=== PATIENT | male | born 1960 | race Caucasian/White ===

== ENCOUNTER 2019-10-17 17:17 | Inpatient (IN) | payer OTHER ==
[2019-10-17] VITALS (11 sets, daily range): BP systolic 117–141; BP diastolic 66–89
[~2019-10-17] VITALS: Ht 172.7 cm; Wt 118.4 kg
[2019-10-17 17:45] LABS: ABSOLUTE BASOPHILS 0.1 thou/uL (0.0-0.2); ABSOLUTE EOSINOPHILS 0.1 thou/uL (0.0-0.7); ABSOLUTE LYMPHOCYTES 1.7 thou/uL (0.8-5.3); ABSOLUTE MONOCYTES 1.3 thou/uL (0.0-1.2); ABSOLUTE NEUTROPHILS 12.1 thou/uL (1.6-8.1); BASOPHILS 0.9 %; EOSINOPHILS 0.7 %; HEMOGLOBIN 18.2 gm/dL (14.0-18.0); LYMPHOCYTES 11.4 %; MCH 31.2 pg (26.0-34.0); MCHC 34.3 g/dL (28.0-37.0); MCV 90.8 fL (80.0-100.0); MONOCYTES 8.6 %; MPV 8.3 fl. (7.2-11.1); NUCLEATED RBCS 0 /100WBC; PLATELET COUNT* 226 thou/uL (150-400); POLYS 78.4 %; RBC 5.84 mil/uL (4.50-6.00); RDW-CV 15.2 % (10.5-14.5); WBC 15.4 thou/uL (4.0-11.0)
[2019-10-17 17:50] LABS: APTT 26.7 Seconds (25.0-31.3); PROTIME 10.3 Seconds (9.20-11.50)
[2019-10-17 17:57] LABS: CALCIUM 9.4 mg/dL (8.5-10.1); CREATININE 1.1 mg/dL (0.6-1.3); POTASSIUM 4.7 mmol/L (3.5-5.1)
[2019-10-17 18:08] LABS: ALBUMIN 4.3 g/dL (3.4-5.0); MAGNESIUM 2.5 mg/dL (1.8-2.4); TOTAL BILIRUBIN 0.7 mg/dL (<0.1-1.0); TOTAL PROTEIN 7.2 g/dL (6.4-8.2)
[2019-10-18] VITALS (24 sets, daily range): BP systolic 110–148; BP diastolic 60–104
[2019-10-18] MEDS ORDERED: NORVASC 2.5 MG2.5 M1 PO (00:24)
[2019-10-18 01:50] LABS: HEMATOCRIT 49.1 % (42.0-52.0); HEMOGLOBIN 16.6 gm/dL (14.0-18.0); MCHC 33.9 g/dL (28.0-37.0); MCV 91.5 fL (80.0-100.0); RBC 5.36 mil/uL (4.50-6.00); RDW-CV 14.7 % (10.5-14.5); WBC 13.8 thou/uL (4.0-11.0)
[2019-10-18 02:00] LABS: ALBUMIN 3.5 g/dL (3.4-5.0); ALKALINE PHOSPHATASE 76 U/L (46-116); ANION GAP 5 mmol/L (7-16); BUN 19 mg/dL (7-18); CALCIUM 8.5 mg/dL (8.5-10.1); CHLORIDE 101 mmol/L (98-107); CHOLESTEROL 170 mg/dL (<200); CO2 29 mmol/L (21-32); GLUCOSE 133 mg/dL (70-99); HDL CHOLESTEROL 25 mg/dL (>40); LDL CHOLESTEROL 105 mg/dL (<100); POTASSIUM 4.1 mmol/L (3.5-5.1); SGOT 342 U/L (15-37); SGPT 67 U/L (30-65); SODIUM 135 mmol/L (136-145); TC:HDL 6.8 Ratio (Not establshd); TOTAL BILIRUBIN 0.8 mg/dL (<0.1-1.0); TOTAL PROTEIN 6.4 g/dL (6.4-8.2); TRIGLYCERIDE 204 mg/dL (<150); VLDL 41 mg/dL (<40)
[2019-10-18 02:01] LABS: SERUM ASSESSMENT Clear
--- NOTE | 2019-10-18 06:33 | NUR ---
PATEINT ARRIVED ON UNIT AT APPROX 1950. ALERT AND ORIENTED TIMES FOUR. GROIN ACCESS SITE C/D/I, NO SIGN OF HEMATOMA. PATIENT ABLE TO GET OUT OF BED AND AMBULATE AROUND THE UNIT AT APPROX 0130 THIS AM. ALSO ABLE TO URINATE INDEPENDENTLY. MINOR COMPLAINT OF PAIN EARLY IN THE EVENING, ORAL MEDICATION GIVEN ONE TIME. NO FURTHER COMPLAINTS OF PAIN AT THIS TIME. SLEEP APNEA NOTED AND PATIENT WILL DROP SATURATION TO THE LOW 80'S DURING SPELLS OF APNEA. RN ASSESSMENTS COMPLETED DOCUMENTED
--- NOTE | 2019-10-18 09:50 | EKG ---
[place] [address] ELECTROCARDIOGRAM REPORT Name: IGNACIO GUNN Room: [address] ADM IN .R.#: [id number] Admission: 10/17/19 Attend Phys: Jorge Barton MD Discharge: Date of : 58 Date of Service: 10/17/19 1723 Report #: [id number] THIS REPORT FOR: //name// [facility] ED Test Date: 2019-10-17 Test Time: 17:23:11 Pat Name: IGNACIO GUNN Department: Room: [facility] Gender: M Qa Architect: : 1960 Requested By: Prince Moses Order Number: [id number] MD: Jorge Barton Measurements Intervals [place] Rate: 133 P: CT: QRS: 68 QRSD: 140 T: -10 QT: 332 QTc: 494 Interpretive Statements Atrial fibrillation Right bundle branch block Inferior infarct, acute Baseline wander in lead(s) III No previous ECG available for comparison Electronically Signed On 10-18-2019 9:50:15 CDT by Jorge Barton [email or web address] <ELECTRONICALLY SIGNED> By: Jorge Barton MD, [facility] 10/18/19 0950 1723 1723 Jorge Barton MD, [facility] /EPI
--- NOTE | 2019-10-18 09:51 | EKG ---
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: : 1960 Requested By: Prince Moses Order Number: [id number] MD: Jorge Barton Measurements Intervals [place] Rate: 144 P: [place]: QRS: 75 QRSD: 155 T: -37 QT: 337 QTc: 522 Interpretive Statements Atrial fibrillation Right bundle branch block Probable inferior infarct, acute Baseline wander in lead(s) II,III,aVL,aVF Compared to ECG 10/17/2019 17:23:11 no change Electronically Signed On 10-18-2019 9:50:59 CDT by Jorge Barton [email or web address] <ELECTRONICALLY SIGNED> By: Jorge Barton MD, FACC 10/18/19 0950 1731 1731 Jorge Barton MD, FAC /EPI
--- NOTE | 2019-10-18 14:32 | H ---
[place] [address] HISTORY AND PHYSICAL Name: IGNACIO GUNN Room: [address] IN M.R.#: [id number] Admission: 10/17/19 Attend Phys: Jorge Barton MD, F Discharge: Date of : 58 Report #: [id number] THIS REPORT FOR: //name// cc: EUNICE Booth family physician/PCP EUNICE - No family physician/PCP ~ THIS REPORT FOR: //name// CC: Jorge Barton FAM physician/PCP DATE OF SERVICE: 10/17/2019 HISTORY OF PRESENT ILLNESS: The patient is a 58-year-old single white male who came to the Emergency Room complaining of chest pain. The patient has no previous history of heart disease. He apparently had a stress test years ago. He does note about 3 weeks ago, he awakened during the night with a discomfort in his chest, lasted about 3 hours and resolved. Last night about 2 in the morning, he awakened with a pressure in his chest. He had diaphoretic, nauseated. This persisted. He did go back to sleep. However, he woke this morning, he again had the pressure. It persisted throughout most of the day. Finally, at 5:00 this evening, he drove himself to the Emergency Room here at [place]. He was found to be having evidence of an acute inferior STEMI. I was asked to see him on an emergent basis. He denies exertional dyspnea, palpitations or syncope. He does have edema. PAST MEDICAL HISTORY: He has had surgery on his left shoulder. He has hypertension, does take a medication. He has no history of diabetes, hyperlipidemia. He has sleep apnea, uses CPAP. He does take an aspirin a day. ALLERGIES: He has no known drug allergies. FAMILY HISTORY: Negative for heart disease. SOCIAL HISTORY: He is engaged. He actually lives in [place]. 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 He is on his way to [place], driving through the [facility]. Smokes a pack of cigarettes a day. No alcohol abuse. REVIEW OF SYSTEMS: No history of stroke. He does snore at night. He has chronic cough. No history of liver disease, kidney disease, cancer, chronic skin condition, psychiatric illness. PHYSICAL EXAMINATION: GENERAL: Revealed a large male who is 5 feet 8 inches, 250 pounds. VITAL SIGNS: Blood pressure 130/70, his pulse was 100, respirations nonlabored. HEENT: He is anicteric. Conjunctivae pink. Mucous membranes moist. NECK: Veins mildly distended. No carotid bruits[place] [address] HISTORY AND PHYSICAL Name: IGNACIO GUNN Room: [address] IN M.R.#: [id number] Admission: 10/17/19 Attend Phys: Jorge Barton MD, F Discharge: Date of : 58 Report #: [id number] CHEST: Clear to auscultation. CARDIOVASCULAR: Irregular tachycardia. No significant murmur. ABDOMEN: Obese. EXTREMITIES: Had trace edema. Dorsalis pedis pulse cannot be palpated. SKIN: Moist, warm. Chest x-ray, normal heart size, clear lung martinez. DIAGNOSTIC DATA: ECG shows atrial fibrillation with inferior injury pattern in II, III and aVF with ST segment elevation. There was a right bundle-branch block. LABORATORY DATA: Sodium 138, potassium 4.7, creatinine 1.1, glucose 177, SGOT 102. SGPT 45. Troponin 4.35. BNP 279. White blood cell count 15.4, hemoglobin 18.2. IMPRESSION AND RECOMMENDATIONS: 1. Acute inferior ST segment elevation myocardial infarction. The pain apparently started almost 16 hours ago. Recommend urgent cardiac catheterization. 2. Atrial fibrillation. Onset unclear. I would recommend digoxin. 3. Hypertension. The patient does take medication. 4. Obesity. 5. Sleep apnea. The patient uses CPAP. 6. Tobacco abuse. 7. Chronic bronchitis. Critical care time spent on this patient was from 6:30 to 7:45 p.m. for a total of 1 hour and 15 minutes. <ELECTRONICALLY SIGNED> By: Jorge Barton MD, FACC 10/18/19 1432 193 1950Daconstance Barton MD, FACC /nt
--- NOTE | 2019-10-18 19:58 | NUR ---
PT A&O x4. GROIN SITE CDI. DENIES ANY PAIN. TOLERATING DIET. TELE STATUS.
[2019-10-19] VITALS: BP 148/75
[2019-10-19 04:00] VITALS: BP 147/83
[2019-10-19 05:37] LABS: GLYCOHEMOGLOBIN (HGB A1C) 6.7 % (4.8-5.6)
--- NOTE | 2019-10-19 07:44 | NUR ---
REPORT RECEIVED FROM CHANDANA IN ICU. ARRIVED TO 218 PER W/C. AGREE WITH MATERIALS HANDLER. PT A+O X 4. PT DENIED CHEST PAIN THROUGHT SHIFT. 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 HARDEEP DECLINED TO STAY THT NIGHT IN THE HOSPITAL BUT DID COME TO SEE PT THIS AM AROUND 0630. CALL LIGHT IN REACH. HOURLY ROUNDING FOR SAFETY.
[2019-10-19 08:00] VITALS: BP 138/72
[2019-10-19] MEDS ORDERED: LIPITOR40 MG PO (12:16)
[2019-10-19] MEDS ORDERED: COREG6.25 MG PO (12:17)
[2019-10-19] MEDS ORDERED: COZAAR 25 MG TA25 M2 PO (12:18)
[2019-10-19] MEDS ORDERED: EFFIENT10 MG PO (12:19)
[2019-10-19] MEDS ORDERED: NITROSTAT0.4 M1 SUBLING (12:20)
[2019-10-19] MEDS ORDERED: METFORMIN HCL500 M3 PO (12:21)
[2019-10-19] MEDS ORDERED: ASA81BEC PO (12:22)
[2019-10-19] MEDS ORDERED: NICOTINE TRANSD21 M1 TRANSDERM (12:23)
[2019-10-19] MEDS ORDERED: TYLENOL 8 HOUR650 MG PO (12:24)
[2019-10-19 12:25] VITALS: BP 130/65
--- NOTE | 2019-10-19 13:16 | NUR ---
PATIENT DISCHARGED TO HOME. DISCHARGE PAPERS REVIEWED AND SIGNED. PRESCRIPTIONS CALLED TO PHARMACY AND INFORMATION SHEETS GIVEN. IV REMOVED. PATIENT DENIES ANY FURTHER NEEDS. PATIENT TAKEN BY WHEELCHAIR TO EXIT. LEFT WITH GIRLFRIEND.
--- NOTE | 2019-10-20 08:20 | CARD ---
[address] [address] CARDIAC CATH REPORT Name: IGNACIO GUNN Room: [address] IN [facility]#: [id number] Admission: 10/17/19 Attend Phys: Jorge Barton MD, F Discharge: 10/19/19 Date of : 58 Report #: [id number] THIS REPORT FOR: //name// cc: EUNICE - No family physician/PCP EUNICE - No family physician/PCP ~ APPROVED REPORT Study performed: 10/17/2019 17:34:07 Patient Details Patient Status: ED Room #: The patient is a 58 year-old male Event Personnel Mabel Snell RN, Dottie Rodriges, Kira Mcgowan RTR Oralia Merritt David Project Estimator Procedures Performed Art Access - R femoral artery* INGRIS Place w/wo Plasty Single RCA [id number] Left Heart Cath w/LT VGram [id number] LHCLV with coronary aspiration therapy Indication Abnormal ECG, STEMI (>12 hrs to = 24 hrs), Chest pain Risk Factors Arterial Hypertension, Hypercholesterolemia, Diabetes Tobacco History () Admission/Lab Medications/Medications given during procedure Glycoprotein IllbIlla Inhibitors, Heparin Unfract. Procedure Narrative The patient was brought emergently to the Cardiac Catheterization Laboratory and was prepped and draped in a sterile manner. The right femoral was infiltrated with 2% Lidocaine subcutaneous anesthesia. A [place] 6 FR sheath was inserted into the right femoral artery. Coronary angiography was performed using coronary diagnostic catheters. The right coronary system was accessed and visualized with a Diagnostic catheter. The left coronary system was accessed and visualized with a Diagnostic catheter. The left ventricle was accessed and visualized with a Diagnostic catheter. Left ventricular/Aortic Valve gradient assessed via catheter pullback. Left ventriculogram was performed in [place] [address] CARDIAC CATH REPORT Name: LUIS AIGNACIO Baudilio Room: [address]#: [id number] Admission: 10/17/19 Attend Phys: Jorge Barton MD, F Discharge: 10/19/19 Date of : 58 Report #: [id number] was deployed with a 6 Fr Angioseal. The patient tolerated the procedure well and there were no complications associated with the procedure. There was no hematoma. Intraoperative Conscious Sedation Sedation start time: 1819 Case end Time: 1908 Fentanyl 50 mcg Versed 4 mg Contrast Type and Amount: Visipaque 145 ml Coronary Angiography The patient's coronary anatomy is right dominant. Diagnostic Cath Left Main 0% stenosis LAD 60% mid stenosis Circumflex 0% stenosis Right Coronary 100% proximal occlusion with thrombus Left Ventriculography The left ventricular ejection fraction is estimated to be 40-45%. Left ventricular wall motion abnormalities are present. There is no mitral insufficiency. severe hypokinesis of the inferior wall Hemodynamics The left ventricular end diastolic pressure is 20 mmHg. There was no gradient across the aortic valve upon pullback. Pullback from the left ventricle to the aorta revealed no gradient across the aortic valve. PCI Technique Lesion Anticoagulation was achieved with Heparin. bolus of iv aggrastat given Percutaneous coronary intervention was performed on the proximal right coronary artery. The lesion stenosis prior to intervention was 100% with BEKAH 0 flow. A 6FR JCR 4 100CM Guide Catheter was used to engage the rca ostium. A IG: BMW 190cm Interventional Guidewire was used to cross the lesion. BALLOON DILATION A Balloon catheter Euphora SC 2.5x10 was inserted and inflated up to 18.00atm for 11seconds. Repeat angiography revealed the following post-dilatation results: 50% [place] [address] CARDIAC CATH REPORT Name: IGNACIO GUNN Baudilio Room: [address]#: [id number] Admission: 10/17/19 Attend Phys: Jorge Barton MD, F Discharge: 10/19/19 Date of : 58 Report #: [id number] A drug-eluting stent Smallwood RX Stent 3.5X18mm was inserted and inflated up to 12.00atm for 14seconds. Repeat angiography revealed the following post-stent deployment results: 0% stenosis but there appeared to be a thrombus at the distal edge of the stent. Additional Inflation: 14.00atm for 12seconds. Additional Inflation: 20.00atm for 19seconds. Aspiration catheter was inserted and coronary hand aspiration was performed at the distal edge of the stent. However, after aspiration, there appeared to be a small disection at the distal end of the stent. PCI Technique Lesion 2 Percutaneous Coronary Intervention was performed on the mid right coronary artery. Percutaneous coronary intervention was performed on the mid right coronary artery. The lesion stenosis prior to intervention was 50% with BEKAH 3 flow. A 6FR JCR 4 100CM Guide Catheter was used to engage the rca ostium. A IG: BMW 190cm Interventional Guidewire was used to cross the lesion. Stent Deployment A drug-eluting stent Smallwood RX Stent 3.0X15mm was inserted and inflated up to 15.00atm for 17seconds. Repeat angiography revealed the following post-stent deployment results: 0% stenosis. Additional Inflation: 16.00atm for 8seconds. Additional Inflation: 20.00atm for 14seconds. Final angiography reveals 0 % stenosis with BEKAH 3 flow. Conclusion 1. acute occlusion of the proximal rca 2. durg eluting stent placement in the proximal rca resulted in a small distal stent edge dissection. 3. placement of a second drug eluting stent in the mid rca resulted in 0% residual stenosis. 4. 60% stenosis in the mid lad 5. LVEF 40-45% Recommendations Smoking Cessation Cardiac Rehabilitation Referral [place] [address] CARDIAC CATH REPORT Name: IGNACIO GUNN Room: [address] IN [facility]#: [id number] Admission: 10/17/19 Attend Phys: Jorge Barton MD, F Discharge: 10/19/19 Date of : 58 Report #: [id number] Medications Administered Prasugrel <ELECTRONICALLY SIGNED> By: Jorge Barton MD, FAC 10/20/19818 8 8Daconstance Barton MD, FAC /INF
--- NOTE | 2019-10-20 15:27 | EKG ---
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: FARHEEN : 1960 Requested By: Jorge Barton Order Number: [id number] Reading MD: Elio Newton Measurements Intervals [place] Rate: 73 P: 33 WI: 142 QRS: 4 QRSD: 146 T: 45 QT: 394 QTc: 435 Interpretive Statements Sinus rhythm Atrial premature complex Right bundle branch block Inferior infarct, acute (RCA) Probable RV involvement, suggest recording right precordial leads Compared to ECG 10/17/2019 17:31:31 Atrial premature complex(es) now present Atrial fibrillation no longer present Myocardial infarct finding still present Electronically Signed On 10-20-2019 15:27:15 CDT by Elio Newton [email or web address] <ELECTRONICALLY SIGNED> By: Elio Newton MD, [facility] 10/20/19 1527 0 0 Elio Newton MD, [facility] /EPI
--- NOTE | 2019-10-20 15:36 | EKG ---
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: : 1960 Requested By: Jorge Barton Order Number: [id number] Reading MD: Elio Newton Measurements Intervals [place] Rate: 69 P: 57 NM: 143 QRS: -41 QRSD: 151 T: 38 QT: 413 QTc: 443 Interpretive Statements Sinus rhythm Right bundle branch block Inferior infarct, acute Compared to ECG 10/18/2019 06:01:58 Atrial premature complex(es) no longer present Myocardial infarct finding still present Electronically Signed On 10-20-2019 15:35:59 CDT by Elio Newton [email or web address] <ELECTRONICALLY SIGNED> By: Elio Newton MD, [facility] 10/20/19 1535 9 9 Elio Newton MD, [facility] /EPI
--- NOTE | 2019-10-20 16:48 | D ---
[address] [address] DISCHARGE SUMMARY Name: IGNACIO GUNN Baudilio Room: [address] IN M.R.#: [id number] Admission: 10/17/19 Attend Phys: Jorge Barton MD, F Discharge: 10/19/19 Date of : 58 Report #: [id number] THIS REPORT FOR: //name// cc: EUNICE Booth family physician/PCP EUNICE - Emmy family physician/PCP ~ THIS REPORT FOR: //name// CC: Jorge Barton FAM physician/PCP DATE OF SERVICE: 10/19/2019 DISCHARGE DIAGNOSES: 1. Acute inferior wall ST segment elevation myocardial infarction. 2. Coronary artery disease. 3. Hypertension. 4. Hyperlipidemia. 5. Diabetes. 6. Sleep apnea. 7. Paroxysmal atrial fibrillation. 8. Tobacco abuse. CONSULTANTS: None. PROCEDURES: Emergent left heart catheterization with placement of 2 drug-eluting stents in the right coronary artery via the femoral approach. HISTORY OF PRESENT ILLNESS: The patient is a 58-year-old single white male who came to the Emergency Room complaining of chest pain. The patient has no previous history of heart disease. He apparently had a stress test years ago. He does note about 3 weeks ago during the night he had discomfort in his chest lasted couple of hours resolved. The night prior to admission at 2 in the morning, the patient is awake with a pressure in his chest, he felt diaphoretic, nauseated. It persisted. He did go back to sleep. However, he woke up on the day of admission, he again felt a pressured chest. It persisted throughout most of the day. Finally, about 5 in the evening, he drove himself to the Emergency Room here at [place]. He was found to be having evidence of an acute inferior STEMI. I was asked to see him on an emergent basis. When arrived, the patient continued to have the chest discomfort. He denies previous history of exertional dyspnea, palpitations or syncope. He does have chronic edema. PAST MEDICAL HISTORY: He has had shoulder surgery, hypertension, sleep apnea, uses CPAP. He does take aspirin 81 mg a day. MEDICATIONS: On admission included amlodipine [place] [address] DISCHARGE SUMMARY Name: IGNACIO GUNN Room: [address]#: [id number] Admission: 10/17/19 Attend Phys: Jorge Barton MD, F Discharge: 10/19/19 Date of : 58 Report #: [id number] ALLERGIES: He had no known drug allergies. PHYSICAL EXAMINATION: GENERAL: Revealed an elderly male, appeared in moderate distress. VITAL SIGNS: Blood pressure 130/70, pulse is 100, respirations nonlabored. CHEST: Clear to auscultation. CARDIAC: Irregular tachycardia. No significant murmur. ABDOMEN: Obese. EXTREMITIES: Had trace edema. DIAGNOSTIC DATA: ECG showed atrial fibrillation with inferior injury pattern with ST segment elevation in lead II, III and aVF. There was a right bundle branch block. LABORATORY WORK: Potassium 4.7, creatinine 1.1, glucose 177. Troponin was 4.35. On admission, hemoglobin 18.2. HOSPITAL COURSE: The patient was felt to be having acute inferior STEMI. He was taken urgently to the cardiac catheterization lab and performed an urgent cardiac catheterization from the right femoral artery. Results showed that the right coronary artery was proximally occluded. There was a 60% narrowing of the mid LAD. The circumflex had no significant disease. He underwent emergent angioplasty and placed 2 drug-eluting stents in the proximal right coronary artery. He tolerated the procedure well. Left ventriculogram showed an ejection fraction of 40-45%. An Angio-Seal was placed into the right femoral artery. He was given heparin and Aggrastat during the procedure. He was then loaded with 60 mg of Effient. Fortunately, he had no further chest pain or shortness of breath. He was given a nicotine patch for his smoking addiction. The patient was noted to be in atrial fibrillation. He was given digoxin 0.5 mg intravenously. He eventually converted to sinus rhythm. Prior to discharge, the patient is ambulating, had no further complaints. He developed no hematoma in the right groin. He was switched from amlodipine to losartan and carvedilol for his blood pressure because of his mild cardiomyopathy. Additional lab work during his hospitalization included a fasting blood sugar of 133. His peak troponin was 101. BNP 279. Cholesterol 170, triglyceride 204, HDL 25, LDL 105. His hemoglobin A1c was 6.7. Followup hemoglobin was 16.9. At the time of discharge, he is ambulating, had no hematoma in the right groin. His vital signs, he had a blood pressure of 130/70, pulse 70, he was afebrile. He was discharged and was taken off the amlodipine, instead he was started on carvedilol 6.25 mg twice a day and losartan 25 mg a day. He was taken aspirin 81 mg a day, Lipitor 40 mg a day in an effort to lower his LDL to less than 70. Nicotine patch and Effient 10 mg a day. He was given nitroglycerin to take as needed for chest pain. For his diabetes, he was started on metformin 500 mg twice day. 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 He plans to see in [place] for the next week in a motel. He is scheduled to see my nurse practitioner on 10/23/2019 at [facility] [address] [place] [address] DISCHARGE SUMMARY Name: IGNACIO GUNN Room: [address] IN [facility].#: [id number] Admission: 10/17/19 Attend Phys: Jorge Barton MD, F Discharge: 10/19/19 Date of : 58 Report #: [id number] 8:30 in the morning. If he remains stable at that time, he will have his fiancee drive him back to [place] where he lives. I recommend he followup with his primary care physician for management of his diabetes and hypertension. I suggest he enroll in cardiac rehabilitation. He was to contact my office if he had recurrent chest pain or bleeding. He will eventually need to obtain a motor vehicle dispatcher in his hometown for followup of his myocardial infarction. He is felt to have a good prognosis. I recommend he obtain temporary disability since he cannot return to work until he recovers from his myocardial infarction. 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 <ELECTRONICALLY SIGNED> By: Jorge Barton MD, [facility] 10/20/19 1648 1123 [id number] Salbador Barton MD, FACC /nt
== END 2019-10-19 13:05 | disposition home or self-care (01) | DRG 247 ==
LOC: M.ERS 17:17 → M.ICU 18:15 → M.TBA-CV 18:15 → M.2W 18:15 → M.ICU 19:52 → M.2W 10-18 21:53
PROVIDERS: Emergency Medicine Emergency Medical Services; ADMIT Internal Medicine Cardiovascular Disease; ATTEND Internal Medicine Cardiovascular Disease
PROC: 3E083PZ Introduction of Platelet Inhibitor into Heart, Percutaneous Approach (ICD-10-PCS; principal; 2019-10-17)
PROC: B211YZZ Fluoroscopy of Multiple Coronary Arteries using Other Contrast (ICD-10-PCS; principal; 2019-10-17)
PROC: 4A023N7 Measurement of Cardiac Sampling and Pressure, Left Heart, Percutaneous Approach (ICD-10-PCS; principal; 2019-10-17)
PROC: B215YZZ Fluoroscopy of Left Heart using Other Contrast (ICD-10-PCS; principal; 2019-10-17)
PROC: 027035Z Dilation of Coronary Artery, One Artery with Two Drug-eluting Intraluminal Devices, Percutaneous Approach (ICD-10-PCS; principal; 2019-10-17)
DX: I21.19 ST elevation (STEMI) myocardial infarction involving other coronary artery of inferior wall (principal); I25.10 Atherosclerotic heart disease of native coronary artery without angina pectoris; I10 Essential (primary) hypertension; E78.5 Hyperlipidemia, unspecified; E11.9 Type 2 diabetes mellitus without complications; E66.9 Obesity, unspecified; J42 Unspecified chronic bronchitis; G47.33 Obstructive sleep apnea (adult) (pediatric); F17.210 Nicotine dependence, cigarettes, uncomplicated; I48.0 Paroxysmal atrial fibrillation; Z99.81 Dependence on supplemental oxygen; Z79.82 Long term (current) use of aspirin; Z79.899 Other long term (current) drug therapy; Z68.39 Body mass index [BMI] 39.0-39.9, adult